=== PATIENT | female | born 1955 | race Caucasian/White ===

== ENCOUNTER 2022-02-19 19:41 | Emergency (ER) | payer OTHER ==
[~2022-02-19] VITALS: Ht 162.6 cm; Wt 86.2 kg
--- NOTE | 2022-02-19 19:42 | NUR ---
BIBA TAKEN TO BED #10
--- NOTE | 2022-02-19 19:45 | NUR ---
Dr. Heath examining patient.
[2022-02-19] MEDS ORDERED: hydrALAZINE 20 MG/ML VIAL IVP ONE (19:50)
[2022-02-19] MEDS ORDERED: TRANEXAMIC ACID 1,000 MG/10 ML VIAL MC ONE (19:50)
[2022-02-19 20:02] VITALS: BP 187/96
[2022-02-19 20:06] LABS: BASOPHILS % (AUTO) 0.6 % (0.0-2.0); EOSINOPHILS # (AUTO) 0.2 K/uL (0-0.4); EOSINOPHILS % (AUTO) 2.6 % (0.0-4.0); HEMATOCRIT 38.7 % (36-48); HEMOGLOBIN 12.5 g/dL (12.0-16.0); LYMPHOCYTES # (AUTO) 3.2 K/uL (2.5-16.5); MEAN CORPUSCULAR HEMOGLOBIN 29 pg (27-31); MEAN CORPUSCULAR HGB CONC 32 g/dL (33-37); MEAN CORPUSCULAR VOLUME 88.2 fL (80-94); MONOCYTES # (AUTO) 0.5 K/uL (0.8-1.0); MONOCYTES % (AUTO) 7.4 % (1.7-9.3); NEUTROPHILS # (AUTO) 2.9 K/uL (1.8-7.7); NEUTROPHILS % (AUTO) 42.4 % (42.2-75.2); PLATELET COUNT (AUTO) 337 K/uL (140-450); RED BLOOD CELL COUNT(AUTO) 4.39 MIL/uL (4.20-5.40); RED CELL DISTRIBUTION WIDTH 15.9 % (11.6-13.7); WHITE BLOOD COUNT (AUTO) 6.8 K/uL (4.8-10.8)
[2022-02-19] MEDS ORDERED: MORPHINE SULFATE 2 MG/ML SYR ONE (20:07)
--- NOTE | 2022-02-19 20:17 | NUR ---
patient pale, and dizziness. patient denies any pain at this moment. AAOx4. BP 66/39. ER aware.
[2022-02-19] MEDS ORDERED: NACL 0.9% 1,000 ML IV ONE (20:20)
[2022-02-19 20:29] LABS: PROTHROMBIN TIME 9.9 secs (10.8-13.4)
[2022-02-19 20:32] LABS: ALBUMIN 3.8 g/dL (3.4-5.0); ANION GAP 13.1 (8-16); CARBON DIOXIDE 25.6 mmol/L (21-32); CREATININE 1.2 mg/dL (0.6-1.3); POTASSIUM 3.7 mmol/L (3.5-5.1); TOTAL BILIRUBIN 0.2 mg/dL (0.0-1.0)
--- NOTE | 2022-02-19 20:49 | NUR ---
WALKED PT TO AND FROM RESTROOM
[2022-02-19] MEDS ORDERED: MORPHINE SULFATE 10 MG/ML VIAL IVP ONE (20:55)
--- NOTE | 2022-02-19 20:56 | NUR ---
PATIENT'S DAUGHTER CALLED- QUEENIE FOR UPDATES ON MOTHER. PER QUEENIE WILL CALL BACK IN 2HRS FOR FURTHER UPDATES.
[2022-02-19] MEDS ORDERED: BACI1PAC6 TP (22:26)
--- NOTE | 2022-02-19 22:33 | NUR ---
hudsonadilene cheatham to update patient.
--- NOTE | 2022-02-19 22:42 | NUR ---
IV removed, catheter intact and site benign. Applied folded 4x4 gauze and tape to stop bleeding.
[2022-02-19 23:28] VITALS: BP 121/59
== END 2022-02-19 23:28 | disposition home or self-care (01) ==
LOC: MED 19:41
DX: R04.0 Epistaxis (principal); R42 Dizziness and giddiness; I10 Essential (primary) hypertension; Z79.899 Other long term (current) drug therapy; Z86.73 Personal history of transient ischemic attack (TIA), and cerebral infarction without residual deficits; Z95.1 Presence of aortocoronary bypass graft; Z79.01 Long term (current) use of anticoagulants
CPT/HCPCS: 36415; 80053; 85025; 85610; 86886; 86900; 86901; 93005; 96361; 96374; 99284; J0360; J2270; J3490; J7030; 30901

== ENCOUNTER 2022-02-21 09:12 | Emergency (ER) | payer OTHER ==
[~2022-02-21] VITALS: Ht 160 cm; Wt 76.7 kg
[~2022-02-21 09:12] MED LIST: BACI1PAC6 TP
[2022-02-21 09:33] VITALS: BP 141/76
--- NOTE | 2022-02-21 12:05 | NUR ---
66Y.O F C/O REMOVAL NOSE PACKING THAT WAS PUT IN 2 DAYS AGO HERE. IS COMPLAINING OF SOME HEAD/NOSE PAIN 03/22. A&OX4, SKIN INTACT AND STEADY GAIT NKA HX: HTN, CHOLESTEROL, STROKEX3, OPEN HEART SURGERY(October)
--- NOTE | 2022-02-21 12:07 | NUR ---
Patient discharged with v/s stable. Written and verbal after care instructions given and explained. Patient verbalized understanding. Ambulatory with steady gait. All questions addressed prior to discharge. Advised to follow up with PMD.
== END 2022-02-21 12:07 | disposition home or self-care (01) ==
LOC: MERGE 09:12 → MED 09:12
DX: R04.0 Epistaxis (principal); Z48.02 Encounter for removal of sutures
CPT/HCPCS: 99281